=== PATIENT | female | born 1985 | race Caucasian/White ===

== ENCOUNTER 2017-11-01 17:45 | Emergency (ER) | payer OTHER, MEDICAID ==
[2017-11-01 19:35] LABS: microscopic required? NO
[2017-11-01 19:46] LABS: UA SPECIFIC GRAVITY >=1.030 (1.005-1.035); urine erythrocyte NEGATIVE (NEGATIVE)
[2017-11-01 20:22] LABS: BASOPHIL % 0.4 % (0-2); PLATELET COUNT 237 x10^3mcL (130-400); RED CELL DISTRIBUTION WIDTH 13.1 % (11.5-14.5)
[2017-11-01 20:33] LABS: CALCIUM 8.5 mg/dL (8.5-10.1); CARBON DIOXIDE 24.2 mmol/L (21-32); CHLORIDE SERUM 107 mmol/L (98-107); CREATININE SERUM 0.7 mg/dL (0.6-1.0); GFR1 > 60 mL/min; GLUCOSE SERUM 95 mg/dL (74-106); POTASSIUM SERUM 3.9 mmol/L (3.5-5.1); SODIUM SERUM 140 mmol/L (136-145)
[2017-11-01 20:37] LABS: ALBUMIN 3.4 g/dL (3.4-5.0); ALKALINE PHOSPHATASE 89 U/L (46-116); ALT/SGPT 21 U/L (14-59); AMYLASE 70 U/L (25-115); AST/SGOT 14 U/L (15-37); BILIRUBIN TOTAL 0.24 mg/dL (0.20-1.00); LIPASE 155 IU/L (73-393); TOTAL PROTEIN, SERUM 7.4 g/dL (6.4-8.2)
[2017-11-01 22:14] VITALS: BP 104/74
== END 2017-11-01 22:14 | disposition home or self-care (01) ==
LOC: ED 17:45
PROVIDERS: Emergency Medicine
DX: R10.31 Right lower quadrant pain (principal); R10.32 Left lower quadrant pain; N83.209 Unspecified ovarian cyst, unspecified side; M79.7 Fibromyalgia
CPT/HCPCS: 83880; J2405; J3010; J7030; Q9967

== ENCOUNTER 2018-05-20 23:21 | Emergency (ER) | payer OTHER, MEDICAID ==
[~2018-05-20] VITALS: Ht 154.9 cm; Wt 73.5 kg
[2018-05-20 23:47] VITALS: BP 121/68; Ht 154.9 cm; Wt 73.5 kg
== END 2018-05-21 01:01 | disposition home or self-care (01) ==
LOC: ED 23:21
DX: S52.592A Other fractures of lower end of left radius, initial encounter for closed fracture (principal); M40.30 Flatback syndrome, site unspecified; X58.XXXA Exposure to other specified factors, initial encounter; Y93.79 Activity, other specified sports and athletics; Y92.89 Other specified places as the place of occurrence of the external cause; Y99.8 Other external cause status
CPT/HCPCS: J1885

== ENCOUNTER 2019-03-16 09:49 | Inpatient (IN) | payer OTHER, MEDICAID ==
[~2019-03-16] VITALS: Ht 154.9 cm; Wt 74.8 kg
[2019-03-16 10:32] LABS: BASOPHIL % 0.6 % (0-2); PLATELET COUNT 352 x10^3mcL (130-400)
[2019-03-16 10:33] LABS: RED CELL DISTRIBUTION WIDTH 14.8 % (11.5-14.5)
[2019-03-16 10:46] LABS: CALCIUM 9.1 mg/dL (8.5-10.1); CARBON DIOXIDE 25.1 mmol/L (21-32); CHLORIDE SERUM 104 mmol/L (98-107); CREATININE SERUM 0.8 mg/dL (0.6-1.0); GFR1 > 60 mL/min; GLUCOSE SERUM 97 mg/dL (74-106); SODIUM SERUM 139 mmol/L (136-145)
[2019-03-16 10:56] LABS: UA SPECIFIC GRAVITY >=1.030 (1.005-1.035); microscopic required? YES; urine erythrocyte 2+ (NEGATIVE)
[2019-03-16 10:57] LABS: ALBUMIN 4.1 g/dL (3.4-5.0); ALKALINE PHOSPHATASE 86 U/L (46-116); ALT/SGPT 18 U/L (14-59); AST/SGOT 13 U/L (15-37); BILIRUBIN TOTAL 0.4 mg/dL (0.20-1.00); C REACTIVE PROTEIN 0.4 mg/dL (<=0.9); T3 TOTAL 1.13 ng/mL
[2019-03-16 10:58] LABS: CK-MB 0.5 ng/mL (0-3.6); FREE T4 1.12 ng/dL (0.76-1.46); FREE THYROXINE INDEX 2.7 ug/dL (1.4-4.5); T4(THYROXINE) 7.8 ug/dL (4.7-13.3); TOTAL PROTEIN, SERUM 8.4 g/dL (6.4-8.2)
[2019-03-16 11:44] LABS: ERYTHROCYTE SED RATE 41 mm/hr (0-20)
[2019-03-16 14:53] LABS: AMPHETAMINE QUAL UR NONE DETECTED (See below)
[2019-03-16 15:04] LABS: MAGNESIUM 1.8 mg/dL (1.8-2.4); PHOSPHOROUS 3.6 mg/dL (2.5-4.9)
[2019-03-16] MEDS ORDERED: PERCOCET1 TAB PO (15:54)
[2019-03-16] MEDS ORDERED: MARINOL5 MG PO (15:54)
[2019-03-16 15:55] VITALS: BP 128/68
[2019-03-16 16:04] VITALS: Ht 154.9 cm; Wt 74.8 kg
[2019-03-16 16:33] LABS: AMYLASE 87 U/L (25-115); LACTIC DEHYDROGENASE (LDH) 167 U/L (100-190); LIPASE 185 IU/L (73-393)
[2019-03-16 16:36] VITALS: BP 106/61
[2019-03-16 21:00] VITALS: BP 92/56
[2019-03-17 06:33] VITALS: BP 101/65
[2019-03-17 06:49] LABS: BASOPHIL % 0.4 % (0-2); PLATELET COUNT 264 x10^3mcL (130-400); RED CELL DISTRIBUTION WIDTH 14.5 % (11.5-14.5)
[2019-03-17 07:01] LABS: CALCIUM 8.2 mg/dL (8.5-10.1); CARBON DIOXIDE 23.3 mmol/L (21-32); CHLORIDE SERUM 110 mmol/L (98-107); CREATININE SERUM 0.8 mg/dL (0.6-1.0); GFR1 > 60 mL/min; GLUCOSE SERUM 84 mg/dL (74-106); POTASSIUM SERUM 3.8 mmol/L (3.5-5.1); SODIUM SERUM 141 mmol/L (136-145)
[2019-03-17 08:11] VITALS: BP 111/70
[2019-03-17 11:50] VITALS: BP 111/68
[2019-03-17 16:51] VITALS: BP 102/62
[2019-03-17 17:20] VITALS: BP 102/62
[2019-03-17] MEDS ORDERED: ZOF4 PO (17:20)
[2019-03-17] MEDS ORDERED: PRILOSEC OTC20 M1 PO (17:22)
== END 2019-03-17 18:04 | disposition home or self-care (01) | DRG 896 ==
LOC: ED 09:49 → MU 14:09
PROVIDERS: Specialist; ADMIT Family Medicine
PROC: 0DB58ZX Excision of Esophagus, Via Natural or Artificial Opening Endoscopic, Diagnostic (ICD-10-PCS; principal; 2019-03-16)
DX: F12.10 Cannabis abuse, uncomplicated (principal); N17.0 Acute kidney failure with tubular necrosis; K20.8 Other esophagitis; R11.10 Vomiting, unspecified; K29.90 Gastroduodenitis, unspecified, without bleeding; M79.7 Fibromyalgia; G58.8 Other specified mononeuropathies; G89.29 Other chronic pain; R80.9 Proteinuria, unspecified; Z68.31 Body mass index [BMI] 31.0-31.9, adult
CPT/HCPCS: 43235; 72072; 84439; 87046; 87046-59; J0171; J1200; J1610; J2250; J2270; J2310; J2405; J2550; J2765; J3010; J3490; J7030; Q0092

== ENCOUNTER 2019-09-10 15:02 | Emergency (ER) | payer OTHER, MEDICAID ==
[~2019-09-10] VITALS: Ht 154.9 cm; Wt 78.0 kg
[~2019-09-10 15:02] MED LIST: MARINOL5 MG PO; PERCOCET1 TAB PO; PRILOSEC OTC20 M1 PO; ZOF4 PO
[2019-09-10 15:08] VITALS: Ht 154.9 cm; Wt 78.0 kg
[2019-09-10 15:58] LABS: BASOPHIL % 0.5 % (0-2); CALCIUM 8.6 mg/dL (8.5-10.1); CARBON DIOXIDE 25.5 mmol/L (21-32); CHLORIDE SERUM 104 mmol/L (98-107); CREATININE SERUM 0.7 mg/dL (0.6-1.0); GFR1 > 60 mL/min; GLUCOSE SERUM 91 mg/dL (74-106); PLATELET COUNT 284 x10^3mcL (130-400); POTASSIUM SERUM 3.9 mmol/L (3.5-5.1); SODIUM SERUM 138 mmol/L (136-145)
[2019-09-10 15:59] LABS: RED CELL DISTRIBUTION WIDTH 15.1 % (11.5-14.5)
[2019-09-10 16:05] LABS: ALBUMIN 3.5 g/dL (3.4-5.0); ALKALINE PHOSPHATASE 94 U/L (46-116); ALT/SGPT 18 U/L (14-59); AST/SGOT 13 U/L (15-37); BILIRUBIN TOTAL 0.12 mg/dL (0.20-1.00); TOTAL PROTEIN, SERUM 7.6 g/dL (6.4-8.2)
[2019-09-10 18:46] VITALS: BP 127/75
== END 2019-09-10 18:46 | disposition home or self-care (01) ==
LOC: ED 15:02
PROVIDERS: Emergency Medicine
DX: M62.838 Other muscle spasm (principal); R07.89 Other chest pain; R51 Headache; R11.10 Vomiting, unspecified; H53.149 Visual discomfort, unspecified; M79.7 Fibromyalgia; Z98.890 Other specified postprocedural states
CPT/HCPCS: J2060; J2765

== ENCOUNTER 2020-10-02 08:19 | Emergency (ER) | payer OTHER, MEDICAID ==
[~2020-10-02] VITALS: Ht 154.9 cm; Wt 88.9 kg
[2020-10-02 08:27] VITALS: Ht 154.9 cm; Wt 88.9 kg
[2020-10-02 09:47] LABS: CALCIUM 9.1 mg/dL (8.5-10.1); CARBON DIOXIDE 24.5 mmol/L (21-32); CHLORIDE SERUM 105 mmol/L (98-107); CREATININE SERUM 0.8 mg/dL (0.6-1.0); GFR1 > 60 mL/min; GLUCOSE SERUM 92 mg/dL (74-106); SODIUM SERUM 138 mmol/L (136-145)
[2020-10-02 09:51] LABS: ALBUMIN 3.8 g/dL (3.4-5.0); ALKALINE PHOSPHATASE 85 U/L (46-116); ALT/SGPT 48 U/L (14-59); AST/SGOT 24 U/L (15-37); BILIRUBIN TOTAL 0.26 mg/dL (0.20-1.00); LIPASE 98 IU/L (73-393); TOTAL PROTEIN, SERUM 7.6 g/dL (6.4-8.2)
[2020-10-02 10:31] LABS: BASOPHIL % 0.4 % (0-2); PLATELET COUNT 284 x10^3mcL (130-400)
[2020-10-02 10:32] LABS: RED CELL DISTRIBUTION WIDTH 15.3 % (11.5-14.5)
[2020-10-02 11:32] LABS: microscopic required? NO
[2020-10-02 11:59] LABS: UA SPECIFIC GRAVITY >=1.030 (1.005-1.035); urine erythrocyte NEGATIVE (NEGATIVE)
[2020-10-02 13:42] VITALS: BP 104/51
== END 2020-10-02 13:42 | disposition home or self-care (01) ==
LOC: ED 08:19
PROVIDERS: Emergency Medicine
DX: K43.9 Ventral hernia without obstruction or gangrene (principal); G89.29 Other chronic pain; D64.9 Anemia, unspecified
CPT/HCPCS: J1885; J2270; J2405; J7030